=== PATIENT | female | born 1955 | race Caucasian/White ===

== ENCOUNTER 2018-10-18 00:19 | Outpatient (CLI) | payer MEDICARE, BC, SELFPAY ==
--- NOTE | 2018-10-18 12:00 | DI.RAD_ITS ---
SYMPTOMS/DIAGNOSIS: SCREENING FOR OSTEOPOROSIS IN A POSTMENOPAUSAL WOMAN, Z78.0 DEXA SCAN: DEXA scan was performed according to the usual protocol. Findings for lumbar spine scan are a T score of 2.0. Findings for left hip scanning are a T score of 1.0 with a left femoral neck T score of -0.1. Findings for left forearm scanning are a T score of 0.4. CONCLUSION: Findings consistent with normal bone density according to the WHO criteria. The lateral vertebral scanogram shows no evidence of a vertebral compression fracture.
== END 2018-10-18 00:39 ==
PROVIDERS: PCP Family Medicine; Visit Provider Family Medicine
DX: Z13.820 Encounter for screening for osteoporosis (principal); Z78.0 Asymptomatic menopausal state
CPT/HCPCS: 77080

== ENCOUNTER 2020-04-17 14:08 | Outpatient (REF) | payer MEDICARE, BC, SELFPAY ==
[2020-04-20 15:38] LABS: Patient Race White; SARS-CoV-2 RNA Undetected (Undetected); SARS-CoV-2 Specimen Source Nasopharynx
== END 2020-04-17 14:28 ==
LOC: NCHCN 14:08
PROVIDERS: PCP Family Medicine; Visit Provider Family Medicine
DX: Z20.828 Contact with and (suspected) exposure to other viral communicable diseases (principal)
CPT/HCPCS: U0003

== ENCOUNTER 2020-09-13 01:03 | Outpatient (CLI) | payer MEDICARE, BC, SELFPAY ==
--- NOTE | 2020-09-13 12:50 | DI.MAMMO_ITS ---
EXAM: MAMMO SCREENING CLINICAL HISTORY: SCREENING, Z12.39 TECHNIQUE: Mammograms were interpreted according to the usual protocol including computer analysis w [employer] CAD system, tomosynthesis and C-view imaging. COMPARISON: 2010 through 2017 FINDINGS: The breasts are composed of scattered fibroglandular densities, Breast Density category B. No suspicious masses or suspicious microcalcifications are seen. No skin thickening or abnormal axillary lymph nodes are seen. There has been no significant change from prior exams. IMPRESSION: BI-RADS Category 1, Negative mammogram Yearly screening mammography is recommended. Breast Density - Category B, scattered fibroglandular densities. A negative radiographic report should not delay biopsy if a dominant or clinically suspicious mass is present. Up to ten percent of cancers are not identified on mammography. A negative report may reinforce clinical impression. Adenosis and dense breasts may obscure an underlying neoplasm. False positive reports average 6 to 10%. Patient will receive a letter notifying them of these results.
== END 2020-09-13 01:04 ==
PROVIDERS: PCP Family Medicine; Visit Provider Family Medicine
DX: Z12.31 Encounter for screening mammogram for malignant neoplasm of breast (principal)
CPT/HCPCS: 77063; 77067

== ENCOUNTER 2020-10-29 17:36 | Outpatient (REF) | payer MEDICARE, BC, SELFPAY ==
--- NOTE | 2020-10-29 15:30 | PAPFT_PTH ---
PATIENT: Minerva Little LOC: [facility]#:[id number] AGE/SX: 65/F ROOM: RE10/29/[address]: Winnie Lucero : 1955 BED: DIS: 10/29/2020 SPEC #: [id number] RECD: 10/30/20 13:01 STATUS: LISA TALAVERA #: [id number] BERENICE: 10/29/20 15:[address]: Winnie Lucero DEPT: [facility] Cytology RECD BY: Helene Solis Tissues: 1 - CX/ENDOCX FOR PAP SMEARS Procedures: PAP THIN PREP/UVM Screening HPV DNA PROBE Comments: [id number]
== END 2020-10-29 17:37 | disposition home or self-care (01) ==
LOC: NCHCN 17:36
PROVIDERS: PCP Family Medicine; Visit Provider Family Medicine
DX: Z12.4 Encounter for screening for malignant neoplasm of cervix (principal); Z11.51 Encounter for screening for human papillomavirus (HPV)
CPT/HCPCS: 88142; 87624

== ENCOUNTER 2020-12-03 13:49 | Outpatient (REF) | payer MEDICARE, BC, SELFPAY ==
[2020-12-03 14:53] LABS: Calculated LDL 101 mg/dL (<100); Cholesterol 197 mg/dL (<200); Glucose 95 mg/dL (74-106); HDL Cholesterol 73 mg/dL (40-60); Triglyceride 117 mg/dL (<150)
== END 2020-12-03 13:50 | disposition home or self-care (01) ==
LOC: NCHCN 13:49
PROVIDERS: PCP Family Medicine; Visit Provider Family Medicine
DX: E78.5 Hyperlipidemia, unspecified (principal); R03.0 Elevated blood-pressure reading, without diagnosis of hypertension
CPT/HCPCS: 80061; 82947

== ENCOUNTER 2020-12-11 13:06 | Outpatient (REF) | payer MEDICARE, BC, SELFPAY | END 2020-12-11 13:07 | disposition home or self-care (01) | LOC: NCHCN 13:06 | PROVIDERS: PCP Family Medicine; Visit Provider Family Medicine | DX: N76.0 Acute vaginitis (principal); N83.8 Other noninflammatory disorders of ovary, fallopian tube and broad ligament | CPT/HCPCS: 87070; 87205 ==

== ENCOUNTER 2020-12-25 02:18 | Outpatient (CLI) | payer MEDICARE, BC, SELFPAY ==
--- NOTE | 2020-12-25 | DI.US_ITS ---
Exam(s) US PELVIS TRANSVAGINAL EXAM: US PELVIS TRANSVAGINAL CLINICAL HISTORY: NONINFLAMMATORY DISORDER OF OVARY,N83.9,? ENLARGED RT OVARY,PELVIC BLOATING. TECHNIQUE: Transabdominal and transvaginal pelvic ultrasound was performed using standard protocol. FINDINGS: KIDNEYS: Kidneys are symmetric in size. No evidence of renal calculi. No evidence of hydronephrosis. No renal mass or cyst identified. UTERUS: Position: Anteverted. Size: 5.9 long by 2.5 AP by 3.0 transverse cm Endometrium: 0.4 cm. Normal for patient's menstrual status. There is a small amount of fluid within t he fundal portion of the endometrial canal. Myometrium: Unremarkable. Cervix: Parenchymal calcifications are seen within the cervix. OVARIES: No adnexal masses. Right: 2 x 2.2 x 0.9 cm Cyst or mass: None. Left: 1.9 x 1.2 x 1.9 cm Cyst or mass: None. DOPPLER: Color: Symmetric and uniform flow to both ovaries. No hyperemia. Duplex: Normal ovarian arterial waveforms visualized. CUL-DE-SAC: Free fluid: Trace amount in the cul-de-sac. Other: None. IMPRESSION: 1. Normal sonographic appearance of the kidneys. 2. Normal-appearing uterus. 3. Endometrial stripe within normal limits for size. Small amount of fluid within the endometrial ca nal. 4. Unremarkable bilateral ovaries. No evidence of an adnexal mass. DATA REPOSITORY:
== END 2020-12-25 02:38 ==
PROVIDERS: PCP Family Medicine; Visit Provider Family Medicine
DX: N83.8 Other noninflammatory disorders of ovary, fallopian tube and broad ligament (principal)
CPT/HCPCS: 76830; 76856

== ENCOUNTER 2021-05-20 12:15 | Outpatient (REF) | payer MEDICARE, BC, SELFPAY ==
[2021-05-20 15:00] LABS: HCT 41.2 % (36.0-46.0); HGB 13.2 g/dL (11.2-15.7); MCH 29.3 pg (27.0-33.0); MCV 91.4 fL (80-95); MPV 9.5 fL (8.0-11.0); Platelet Count 349 10^3/uL (130-400); RBC 4.51 10^6/uL (3.93-5.22); RDW 12.1 % (11.7-14.6); RDW-SD 40.6 fL; WBC 4.17 10^3/uL (4.4-10.8)
[2021-05-20 15:44] LABS: TSH (W/Ref FT4) 3.92 uIU/mL (0.36-3.74); Vitamin B12 191 pg/mL (193-986)
[2021-05-20 19:48] LABS: FREE T4 0.89 ng/dL (0.76-1.46)
== END 2021-05-20 12:16 | disposition home or self-care (01) ==
LOC: NCHCN 12:15
PROVIDERS: PCP Family Medicine; Visit Provider Family Medicine
DX: G60.9 Hereditary and idiopathic neuropathy, unspecified (principal); Z91.89 Other specified personal risk factors, not elsewhere classified
CPT/HCPCS: 82306; 85027; 82607; 84439; 84443

== ENCOUNTER 2022-07-28 01:32 | Outpatient (CLI) | payer MEDICARE, SELFPAY ==
--- NOTE | 2022-07-28 | DI.MAMMO_ITS ---
Exam(s) MAMMO SCREENING EXAM: MAMMO SCREENING CLINICAL HISTORY: SCREENING FOR BREAST CANCER Z12.39. TECHNIQUE: Bilateral full field digital CC and MLO mammographic images were obtained with 3D tomosyn thesis and utilizing computer aided detection (CAD). COMPARISON: Prior mammograms were reviewed. FINDINGS: There has been no significant change in the appearance and distribution of the fibroglandular tissue. No CAD designations. There are no new spiculated masses nor malignant appearing microcalcification groups. There is no significant architectural distortion nor skin thickening-retraction. IMPRESSION: No radiographic evidence of malignancy. BI-RADS Category 1 - Negative Breast Density - Category B - Scattered areas of fibroglandular density Breast density Category C or D implies that the patient has dense breast tissue. Dense breast tissue can make it harder to find cancer on a mammogram. Dense breast tissue is also associated with an incr eased risk of breast cancer. This information about the result of the mammogram report was provided to the patient to raise their awareness. Use this report when you speak with the patient about their risks for breast cancer, which includes their family history. At that time, you may recommend additional screening tests (Ultrasoun d or MRI) as these tests may add significant information. A negative radiographic report should not delay biopsy if a dominant or clinically suspicious mass is present. Up to ten percent of cancers are not identified on mammography. A negative report may reinforce clinical impression. Adenosis and dense breasts may obscure an underlying neoplasm. False positive reports average 6 to 10%. Patient will receive a letter notifying them of these results.
== END 2022-07-28 01:52 ==
PROVIDERS: PCP Family Medicine; Visit Provider Family Medicine
DX: Z12.31 Encounter for screening mammogram for malignant neoplasm of breast (principal)
CPT/HCPCS: 77063; 77067

== ENCOUNTER 2024-05-05 18:25 | Outpatient (REF) | payer MEDICARE, SELFPAY ==
[2024-05-05 21:58] LABS: HCT 41.4 % (36.0-46.0); HGB 13.6 g/dL (11.2-15.7); MCH 30.2 pg (27.0-33.0); MCHC 32.9 % (32.0-36.0); MCV 92 fL (80-95); MPV 9.3 fL (8.0-11.0); Platelet Count 326 10^3/uL (130-400); RBC 4.51 10^6/uL (3.93-5.22); RDW-SD 40.5 fL; WBC 5.95 10^3/uL (4.4-10.8)
[2024-05-05 22:15] LABS: Anion Gap 7.8 mmol/L (3-11); BUN 15 mg/dL (7-18); CO2 29.2 mmol/L (21.0-32.0); Calcium 9.5 mg/dL (8.5-10.1); Calculated LDL 157 mg/dL (<100); Chloride 106 mmol/L (98-107); Cholesterol 253 mg/dL (<200); Estimated GFR 60.61 (mL/min/1.73m2); Glucose 91 mg/dL (74-106); HDL Cholesterol 82 mg/dL (40-60); Potassium 4.2 mmol/L (3.5-5.1); Sodium 143 mmol/L (136-145); Triglyceride 73 mg/dL (<150)
== END 2024-05-05 18:26 | disposition home or self-care (01) ==
LOC: NCHCN 18:25
PROVIDERS: PCP Family Medicine; Visit Provider Family Medicine
DX: Z13.0 Encounter for screening for diseases of the blood and blood-forming organs and certain disorders involving the immune mechanism (principal)
CPT/HCPCS: 80048; 80061; 85027

== ENCOUNTER 2024-08-23 13:22 | Outpatient (REF) | payer MEDICARE, SELFPAY ==
--- NOTE | 2024-08-23 12:42 | PAPFT_PTH ---
PATIENT: Minerva Little LOC: [facility]#:[id number] AGE/SX: 69/F ROOM: RE08/23/[address]: Christine Vyas : 1955 BED: DIS: 08/23/2024 SPEC #: [id number] RECD: 08/24/24 12:44 STATUS: LISA REQ #: [id number] BERENICE: 08/23/24 12:[address]: Christine Vyas DEPT: [facility] Cytology RECD BY: Helene Solis ENTERED: 08/24/24 12:45 SP TYPE: PAPFT OTHR DR: Winnie Lucero Tissues: 1 - CX/ENDOCX FOR PAP SMEARS Procedures: PAP THIN PREP/UVM Screening HPV DNA PROBE Comments: [id number] (HPV 16 & 18/45)
[2024-08-23 21:56] LABS: Abs Immature Grans 0.01 10^3/uL (0.0-0.06); Absolute Basophil Count 0.07 10^3/uL (0.0-0.2); Absolute Eosinophil Count 0.03 10^3/uL (0.0-0.7); Absolute Lymphocyte Count 1.46 10^3/uL (1.2-3.4); Absolute Monocyte Count 0.44 10^3/uL (0.1-0.8); Absolute Neutrophil Count 2.97 10^3/uL (1.2-6.7); Basophils % 1.4 %; Eosinophils % 0.6 %; HCT 42.2 % (36.0-46.0); HGB 13.8 g/dL (11.2-15.7); Immature Grans % 0.2 %; Lymphocytes % 29.3 %; MCH 29.9 pg (27.0-33.0); MCHC 32.7 % (32.0-36.0); MCV 92 fL (80-95); MPV 9.4 fL (8.0-11.0); Monocytes % 8.8 %; Neutrophils % 59.7 %; Platelet Count 354 10^3/uL (130-400); RBC 4.61 10^6/uL (3.93-5.22); RDW-SD 39.9 fL; WBC 4.98 10^3/uL (4.4-10.8)
[2024-08-23 22:05] LABS: ALT 25 U/L (14-59); AST 27 U/L (15-37); Albumin 4.4 g/dL (3.4-5.0); Alkaline Phosphatase 62 U/L (46-116); Anion Gap 8.7 mmol/L (3-11); BUN 12 mg/dL (7-18); Bilirubin, Total 0.54 mg/dL (0.2-1.0); CO2 27.3 mmol/L (21.0-32.0); CREATININE 0.9 mg/dL (0.55-1.02); Calcium 9.6 mg/dL (8.5-10.1); Chloride 106 mmol/L (98-107); Estimated GFR 68.35 (mL/min/1.73m2); Glucose 100 mg/dL (74-106); Potassium 4.8 mmol/L (3.5-5.1); Sodium 142 mmol/L (136-145); Total Protein 7.9 g/dL (6.4-8.2)
== END 2024-08-23 13:23 | disposition home or self-care (01) ==
LOC: NCHCN 13:22
PROVIDERS: PCP Family Medicine; Visit Provider Family Medicine
DX: R10.2 Pelvic and perineal pain (principal); Z11.51 Encounter for screening for human papillomavirus (HPV); Z01.419 Encounter for gynecological examination (general) (routine) without abnormal findings
CPT/HCPCS: 80053; 88142; 85025; 87624

== ENCOUNTER 2024-09-07 02:34 | Outpatient (CLI) | payer MEDICARE, SELFPAY ==
--- NOTE | 2024-09-07 08:05 | DI.MAMMO_ITS ---
Exam(s) MAMMO SCREENING EXAM: MAMMO SCREENING CLINICAL HISTORY: SCREENING, Z12.31. TECHNIQUE: Bilateral full field digital CC and MLO mammographic images were obtained with 3D tomosyn thesis and utilizing computer aided detection (CAD). COMPARISON: Prior mammograms were reviewed. FINDINGS: There has been no significant change in the appearance and distribution of the fibroglandular tissue. There are no new spiculated masses nor malignant appearing microcalcification groups. There is no significant architectural distortion nor skin thickening-retraction. IMPRESSION: No radiographic evidence of malignancy. BI-RADS Category 1 - Negative Breast Density - Category B - Scattered areas of fibroglandular density Breast density Category C or D implies that the patient has dense breast tissue. Dense breast tissue can make it harder to find cancer on a mammogram. Dense breast tissue is also associated with an incr eased risk of breast cancer. This information about the result of the mammogram report was provided to the patient to raise their awareness. Use this report when you speak with the patient about their risks for breast cancer, which includes their family history. At that time, you may recommend additional screening tests (Ultrasoun d or MRI) as these tests may add significant information. A negative radiographic report should not delay biopsy if a dominant or clinically suspicious mass is present. Up to ten percent of cancers are not identified on mammography. A negative report may reinforce clinical impression. Adenosis and dense breasts may obscure an underlying neoplasm. False positive reports average 6 to 10%. Patient will receive a letter notifying them of these results.
== END 2024-09-07 02:54 ==
PROVIDERS: PCP Family Medicine
DX: Z12.31 Encounter for screening mammogram for malignant neoplasm of breast (principal); R92.323 Mammographic fibroglandular density, bilateral breasts
CPT/HCPCS: 77063; 77067

== ENCOUNTER 2024-09-12 02:27 | Outpatient (CLI) | payer MEDICARE, SELFPAY ==
--- NOTE | 2024-09-12 | DI.US_ITS ---
Exam(s) US PELVIS TRANSVAGINAL EXAM: US PELVIS TRANSVAGINAL CLINICAL HISTORY: Lt-sided pelvic pain, R10.2-pelvis and perineal pain;rust-colored discharge. TECHNIQUE: Transabdominal and transvaginal pelvic ultrasound was performed using standard protocol. COMPARISON: US US PELVIS TRANSVAGINAL from 12/25/2020 FINDINGS: UTERUS: Position: Anteverted. Size: 5.3 long by 3.4 AP by 3.5 transverse cm Endometrium: 0.4 to 0.5 cm. There was a small amount of fluid seen within the endometrial canal. Myometrium: Unremarkable. Cervix: Unremarkable. OVARIES: Right: 1.8 x 1.7 x 2.3 cm Cyst or mass: No suspicious cystic or solid masses. The largest cyst measures 1.9 cm. Left: 1.8 x 0.9 x 0.8 cm Cyst or mass: No suspicious cystic or solid masses. DOPPLER: Color: Symmetric and uniform flow to both ovaries. CUL-DE-SAC: Free fluid: None. Other: None. IMPRESSION: 1. Endometrial stripe measuring 0.4 to 0.5 cm. This is at the upper limits of normal in a postmenopa usal patient. Follow-up as clinically appropriate. 2. Unremarkable bilateral ovaries. DATA REPOSITORY:
== END 2024-09-12 02:47 ==
LOC: DI 02:27
PROVIDERS: PCP Family Medicine; Visit Provider Family Medicine
DX: R10.2 Pelvic and perineal pain (principal)
CPT/HCPCS: 76830; 76856

== ENCOUNTER 2025-02-26 16:40 | Outpatient (REF) | payer MEDICARE, SELFPAY ==
[2025-02-26 16:03] LABS: Anion Gap 8.2 mmol/L (3-11); BUN 20 mg/dL (7-18); CO2 26.8 mmol/L (21.0-32.0); Calcium 9.4 mg/dL (8.5-10.1); Chloride 104 mmol/L (98-107); Estimated GFR 68.35 (mL/min/1.73m2); Glucose 95 mg/dL (74-106); Potassium 4.0 mmol/L (3.5-5.1); Sodium 139 mmol/L (136-145)
== END 2025-02-26 16:41 | disposition home or self-care (01) ==
LOC: NCHCN 16:40
PROVIDERS: PCP Family Medicine; Visit Provider Family Medicine
DX: I10 Essential (primary) hypertension (principal)
CPT/HCPCS: 80048